=== PATIENT | male | born 1990 | race Caucasian/White ===

== ENCOUNTER 2019-06-12 08:20 | Emergency (ER) | payer OTHER ==
[~2019-06-12] VITALS: Ht 188 cm; Wt 93.1 kg
[2019-06-12] MEDS ORDERED: ONDANSETRON 4MG/2ML VIAL (J2405) IV ONE (09:45)
[2019-06-12] MEDS ORDERED: NS 1,000 ML IV ONE (09:45)
[2019-06-12 09:48] LABS: BASO % 0.5 % (0.0-1.0); EOS # 0.2 10^3/uL (0.0-0.5); EOS % 3.6 % (0.0-3.0); HEMATOCRIT 45.1 % (42.0-52.0); LYMPH # 1.3 10^3/uL (1.5-5.0); LYMPH % 28.6 % (24.0-44.0); MEAN CORPUSCULAR HEMOGLOBIN 31.7 pg (27.0-33.0); MEAN CORPUSCULAR HGB CONC 33.3 g/dl (32.0-36.5); MEAN CORPUSCULAR VOLUME 95.3 fl (80.0-96.0); MONO # 0.5 10^3/uL (0.0-0.8); MONO % 12.2 % (0.0-5.0); NEUTROPHILS # 2.4 10^3/uL (1.5-8.5); NEUTROPHILS % 54.9 % (36.0-66.0); PLATELET COUNT, AUTOMATED 187 10^3/uL (150-450); RED BLOOD COUNT 4.73 10^6/uL (4.30-6.10); WHITE BLOOD COUNT 4.4 10^3/uL (4.0-10.0)
[2019-06-12] MEDS ORDERED: MORPHINE 2 MG/ML 1ML VIAL (J2270) IV PRN (10:00)
[2019-06-12 10:09] LABS: ALBUMIN 4.3 GM/DL (3.2-5.2); ALT/SGPT 28 U/L (12-78); BILIRUBIN,DIRECT 0.1 MG/DL (0.0-0.2); BILIRUBIN,TOTAL 0.4 MG/DL (0.2-1.0); BLOOD UREA NITROGEN 14 MG/DL (7-18); CALCIUM LEVEL 9.2 MG/DL (8.5-10.1); CARBON DIOXIDE LEVEL 29 MEQ/L (21-32); CHLORIDE LEVEL 103 MEQ/L (98-107); CREATININE FOR GFR 1.06 MG/DL (0.70-1.30); GLOMERULAR FILTRATION RATE > 60.0 (>60); GLUCOSE, FASTING 88 MG/DL (70-100); LIPASE 112 U/L (73-393); SODIUM LEVEL 138 MEQ/L (136-145); TOTAL PROTEIN 7.4 GM/DL (6.4-8.2)
[2019-06-12] MEDS ORDERED: ISOVUE-370 76% 100ML VIAL (Q9967) As Ordered ONE (10:15)
--- NOTE | 2019-06-12 11:34 | REP ---
CT ABDOMEN AND PELVIS WITH IV BUT WITHOUT ORAL CONTRAST: HISTORY: Right upper quadrant pain and vomiting. CT CONTRAST DOSE: 100 mL of intravenous Isovue 370 is administered. No comparison study. CT FINDINGS: Preliminary digital [employer] radiograph is unremarkable. Lung bases are clear. The liver and the spleen are normal in size homogeneous in texture. No focal liver lesion is seen. No abnormalities noted in the pancreas or in the gallbladder. No adrenal lesion is seen on either side. The kidneys enhance symmetrically and are morphologically intact. No retroperitoneal mass or adenopathy is seen. Small and large intestinal bowel loops are normal in the upper abdomen. A normal appendix is visible in the right lower quadrant. Pelvic CT images show normal seminal vesicles, prostate and urinary bladder. No pelvic mass or adenopathy is observed. No abdominal wall defect is seen. IMPRESSION: Negative CT study abdomen and pelvis. Normal appendix seen. No acute abdominal or pelvic abnormality. Electronically Signed by Minh Michaels MD 06/12/2019 03:51 P
--- NOTE | 2019-06-12 12:20 | REP ---
Abdominal right upper quadrant ultrasound for right upper quadrant pain: There is a 3 mm hypoechoic nodule along the dependent wall of the gallbladder, likely a adherent calculus or possibly a polyp. The gallbladder is otherwise unremarkable. There is no gallbladder wall thickening or pericholecystic fluid. There is no intrahepatic or extrahepatic biliary duct dilatation. The common biliary duct measures 4 ml in diameter. The hepatic parenchyma is homogeneous and otherwise unremarkable. The pancreas is obscured by bowel gas. The right kidney is normal size measuring 10.8 x 5.5 x 3.9 cm. There is no right renal calculus or hydronephrosis. There is no right renal solid or cystic mass. There is no right upper quadrant abdominal ascites. Impression: 3 mm gallbladder mucosal polyp versus adherent calculus. Otherwise, negative abdominal right upper quadrant ultrasound. Electronically Signed by Quentin Laura MD 06/12/2019 12:11 P
[2019-06-12] MEDS ORDERED: ONDA4TAB6 PO (13:27)
[2019-06-12 13:41] VITALS: BP 120/56
--- NOTE | 2019-06-13 16:31 | ED PDOC ---
Post-Departure Follow-Up ft zaki quinn faxed formal report of gissel us for fu Ar Javier MD Jun 13, 2019 16:31
== END 2019-06-12 14:19 | disposition home or self-care (01) ==
LOC: M ED 08:20
DX: R10.9 Unspecified abdominal pain (principal); R11.2 Nausea with vomiting, unspecified
CPT/HCPCS: 36415; 74177; 76705; 80048; 80076; 81001; 83690; 85025; 96361; 96374; 99284; J2405; Q9967

== ENCOUNTER → 2019-08-14 | Outpatient (REF) | payer OTHER ==
[~2019-08-14] MED LIST: ONDA4TAB6 PO
== END ==
LOC: M SFHCLERA 16:18
PROVIDERS: ATTEND Nurse Practitioner Family
DX: L03.011 Cellulitis of right finger (principal)